=== PATIENT | male | born 1975 | race Asian ===

== ENCOUNTER 2020-11-25 15:35 | Emergency (ER) | payer BC, OTHER ==
[~2020-11-25] VITALS: Ht 175.3 cm; Wt 99.8 kg
[2020-11-25] MEDS ORDERED: PREDNISONE50 MG PO (16:53)
[2020-11-25] MEDS ORDERED: FLEXERIL PO (16:53)
[2020-11-25] MEDS ORDERED: NORCO5 PO (16:53)
[2020-11-25 17:34] VITALS: BP 129/85
[2020-11-26] MEDS ORDERED: VALACYCLOVIR1000 MG PO (14:12)
[2020-11-26] MEDS ORDERED: PREDNISONE 20 M20 MG PO (14:12)
== END 2020-11-25 17:50 | disposition home or self-care (01) ==
LOC: ER 15:35 → EDBD 15:35 → ER 17:50
DX: S16.1XXA Strain of muscle, fascia and tendon at neck level, initial encounter (principal); M79.602 Pain in left arm; Z86.16 Personal history of COVID-19; X50.1XXA Overexertion from prolonged static or awkward postures, initial encounter; Y93.89 Activity, other specified; Y92.828 Other wilderness area as the place of occurrence of the external cause; Y99.8 Other external cause status

== ENCOUNTER 2020-11-26 11:36 | Emergency (ER) | payer BC, OTHER ==
[~2020-11-26] VITALS: Ht 177.8 cm; Wt 99.8 kg
[~2020-11-26 11:36] MED LIST: FLEXERIL PO; NORCO5 PO; PREDNISONE50 MG PO
[2020-11-26 12:16] LABS: ABSOLUTE NEUTROPHILS 5.5 thou/uL (1.4-8.2); BASOPHILS 0.4 % (0.0-2.0); EOSINOPHILS 1.1 % (0.0-3.0); HEMATOCRIT 40.1 % (42.0-52.0); HEMOGLOBIN 13.9 gm/dL (14.0-18.0); LYMPHOCYTES 25.9 % (24.0-44.0); MCH 31.3 pg (26.0-34.0); MCHC 34.7 g/dL (28.0-37.0); MCV 90.2 fL (80.0-100.0); MONOCYTES 3.2 % (1.0-8.0); PLATELET COUNT 232 thou/uL (150-400); POLYS 69.4 % (36.0-66.0); RBC 4.44 mil/uL (4.50-6.00); RDW 13.8 % (10.5-14.5)
[2020-11-26 12:25] LABS: CALCIUM 8.7 mg/dL (8.5-10.1); CREATININE 0.7 mg/dL (0.7-1.3); POTASSIUM 4.3 mmol/L (3.5-5.1)
[2020-11-26 12:31] LABS: ALBUMIN 3.6 g/dL (3.4-5.0); TOTAL BILIRUBIN 0.5 mg/dL (0.2-1.0); TOTAL PROTEIN 7.4 g/dL (6.4-8.2)
[2020-11-26] MEDS ORDERED: VALACYCLOVIR1000 MG PO (14:12)
[2020-11-26] MEDS ORDERED: PREDNISONE 20 M20 MG PO (14:12)
[2020-11-26 14:25] VITALS: BP 144/85
--- NOTE | 2020-11-26 15:07 | EKG ---
[place] [address] [facility] [place] [address] ELECTROCARDIOGRAM REPORT Name: GLADYS ZHONG [facility] [id number] Admission: 11/26/20 Attend Phys: Discharge: 11/26/20 Date of : 77 Report #: [id number] [facility] ED Test Date: 2020-11-26 Test Time: 12:15:05 Pat Name: GLADYS ZHONG Department: Room: Gender: Traveling Representative: : 1975 Requested By: Walker Russ Order Number: [id number] MD: Toñito Meza Measurements Intervals Bluejacket Rate: 76 P: 29 WA: 162 QRS: 8 QRSD: 78 T: 61 QT: 365 QTc: 411 Interpretive Statements Sinus rhythm Abnormal R-wave progression, early transition Baseline wander in lead(s) I,II,aVR,aVL No previous ECG available for comparison Electronically Signed On 11-26-2020 15:07:08 CDT by Toñito Meza [email or web address] <ELECTRONICALLY SIGNED> By: Toñito Meza MD, [facility] 11/26/20 1507 1214 14 Toñito Meza MD, FACC /EPI
== END 2020-11-26 14:25 | disposition home or self-care (01) ==
LOC: ER 11:36 → EDBD 11:36 → ER 14:25
PROVIDERS: Nurse Practitioner; Student in an Organized Health Care Education/Training Program
DX: G51.0 Bell's palsy (principal); Z86.16 Personal history of COVID-19; Z79.899 Other long term (current) drug therapy

== ENCOUNTER 2020-12-06 17:21 | Emergency (ER) | payer BC, OTHER ==
[~2020-12-06] VITALS: Ht 175.3 cm; Wt 99.8 kg
[~2020-12-06 17:21] MED LIST changes: +PREDNISONE 20 M20 MG PO; +VALACYCLOVIR1000 MG PO
[2020-12-06 17:29] VITALS: BP 127/77
== END 2020-12-06 20:53 | disposition left against medical advice (07) ==
LOC: ER 17:21
DX: Z53.21 Procedure and treatment not carried out due to patient leaving prior to being seen by health care provider (principal)